=== PATIENT | male | born 1975 | race Caucasian/White ===

== ENCOUNTER 2025-04-29 20:19 | Emergency (ER) | payer SELFPAY ==
[2025-04-29 20:21] VITALS: BP 169/120
[2025-04-29 20:48] LABS: % Basophils 0.8 % (0-2); % Eosinophils 3.5 % (0-6); % Immature Granulocytes 0.1 % (0-0.5); % Lymphocytes 28.1 % (20.5-51.1); % Monocytes 6.4 % (1.7-9.3); % Neutrophils 61.1 % (42.2-75.2); Absolute Basophils 0.1 10^3/uL (0-0.2); Absolute Eosinophils 0.3 10^3/uL (0-0.7); Absolute Lymphocytes 2.2 10^3/uL (1.2-3.4); Absolute Monocytes 0.5 10^3/uL (0.1-0.6); Absolute Neutrophils 4.9 10^3/uL (1.4-6.5); Hematocrit 47.5 % (39.0-52.0); Hemoglobin 16.5 g/dL (13.0-18.0); Mean Corp Hgb Conc. 34.7 g/dL (33.0-37.0); Mean Corpuscular Hgb 30.8 pg (27.0-31.0); Mean Corpuscular Volume 88.8 fL (80.0-94.0); Mean Platelet Volume 9.5 fL (7.4-10.4); Nucleated Red Blood Cells % 0 % (-); Platelet Count 192 10^3/uL (130-400); Red Blood Cell Count 5.35 10^6/uL (4.70-6.10); Red Cell Dist. Width 13.2 % (11.5-14.5); White Blood Cell Count 7.9 10^3/uL (4.8-10.8)
[2025-04-29 20:57] LABS: Amphetamines Negative (Negative); Barbiturates Negative (Negative); Benzodiazepines Negative (Negative); Buprenorphine Negative (Negative); Cocaine Negative (Negative); Marijuana Negative (Negative); Methadone Negative (Negative); Methamphetamines Negative (Negative); Opiates Negative (Negative); Phencyclidine Negative (Negative); Tricyclic Antidepressants Negative (Negative)
[2025-04-29 21:08] VITALS: BMI 44.4
[2025-04-29 21:09] LABS: ALT (SGPT) 27 U/L (0-50); AST (SGOT) 31 U/L (17-59); Albumin 4.8 g/dl (3.5-5.0); Alkaline Phosphatase 89 U/L (38-126); Blood Urea Nitrogen 28 mg/dl (9-20); Calcium 9.7 mg/dl (8.4-10.2); Carbon Dioxide 22 mmol/L (22-30); Chloride 108 mmol/L (98-107); Estimated Creatinine Clearance 104 ml/min; Glucose 89 mg/dl (70-99); Potassium 4.3 mmol/L (3.5-5.1); Sodium 139 mmol/L (135-145); Total Bilirubin 0.5 mg/dl (0.2-1.3); Total Protein 7.8 g/dl (6.3-8.2); eGFR > 60.00
[2025-04-29 21:12] VITALS: BP 166/111
[2025-04-29 22:00] VITALS: BP 166/99
[2025-04-29 22:09] LABS: Free T4 0.87 ng/dl (0.78-2.19)
[2025-04-29 22:42] LABS: Troponin I < 0.012 ng/ml
--- NOTE | 2025-04-29 22:44 | ED.GENMED ---
History of Present Illness
General
Chief Complaint: Heart Rate Problem
Time Seen by Provider: 04/29/25 21:13
History of Present Illness
History of Present Illness:
50-year-old male with history of hypothyroidism and hypertension presenting to the emergency department for abnormal sensation in his chest. Patient reports around 8 PM he felt like his heart rate was slowing down. Symptoms lasted for few minutes.
Reports similar symptoms yesterday as well, however resolved on their own. Reports that he has had issues with his heart in the past, however does mention that he has had issues with substance abuse, speed. Last usage was in February. Notes that
cardiac issues in the past have been tied to drug abuse. Denies any chest pain or difficulty breathing. Denies any known history of arrhythmias. Does note that he has been struggling with his thyroid levels, reports compliance with his
medications. Does note that he has been on ziprasidone for psychosis from the [employer]. He is not sure whether or not this is causing a reaction, however has tolerated this medication since February. Denies abdominal pain or GI symptoms. Denies
additional acute medical complaints.
Past History
Past History
ED Past Medical History: None
ED Past Surgical History: None
Phy Exam
Physical Exam
Physical Exam:
General: Well-appearing, no clinical signs of dehydration, nontoxic and in no acute distress
HEENT: protecting airway
Neck: appears supple
CV: Normal heart rate, regular rhythm
Resp: No accessory muscle use, no increased work of breathing, lungs clear to auscultation bilaterally
Abd: Soft and non-distended, no tenderness to palpation
Extremities: No deformities, no swelling
Neuro: alert, no focal neurologic deficit
: deferred
Rectal: deferred
Psych: Normal affect
Skin: Intact
Course
Orders/Labs/Results
Orders:
Orders
04/29/25 20:21
ECG [Electrocardiogram (*1)] Urgent
Reason for Study: Palpitations
EKG- Treatment ONCE
04/29/25 20:26
Electrocardiogram (*1) Urgent
Reason for Study: Palpitations
04/29/25 20:38
Complete Blood Count/With Diff Urgent
Comprehensive Metabolic Panel Urgent
Free T4 Urgent
TSH Reflex To Free T4 Urgent
04/29/25 20:41
Urine Drug Abuse Screen Urgent
Date Specimen was Collected: 04/29/25
Time Specimen was Collected: 20:28
04/29/25 22:10
Troponin I Urgent
Abnormal Lab Results
04/29/25
20:38
Chloride 108 H mmol/L
(98-107)
BUN 28 H mg/dl
(9-20)
TSH (Reflex) 16.80 H uIU/ml
(0.47-4.68)
04/29/25 20:38
04/29/25 20:38
Vital Signs
Initial and Last Documented VS:
Initial Vital Signs
Temp Pulse Resp BP Pulse Ox
98.1 F 98 18 169/120 99
04/29/25 20:21 04/29/25 20:21 04/29/25 20:21 04/29/25 20:21 04/29/25 20:21
Last Documented Vital Signs
Temp Pulse Resp BP Pulse Ox
99.2 F 82 20 166/111 98
04/29/25 21:12 04/29/25 21:12 04/29/25 21:12 04/29/25 21:12 04/29/25 21:12
MDM/Problems Addressed
MDM/Problems Addressed:
50-year-old male with history of hypertension, hypothyroidism, anxiety presenting for concerns of palpitations. Vital signs on arrival are significant for high blood pressure.
On physical exam patient resting comfortably, no acute distress or discomfort. EKG obtained on patient's arrival, no arrhythmia, no ischemia. Unclear etiology to patient's sensation of a 'low heart rate'. No present bradycardia. Plan for
screening laboratory analysis including electrolyte panel, TSH given history, continued cardiac monitoring.
22:50 - Labs unremarkable with no electrolyte derangements. TSH is elevated at 16, however normal T4 and patient notes that this is an improvement from prior. Patient reports he is currently asymptomatic. Undetectable troponin. Ultimately feel
stable for discharge, however with outpatient cardiology follow-up for potential Holter monitoring. Return precautions discussed and patient verbalized understanding.
*EKG
Interpreted by ED Provider?: Yes
EKG Intrepretation Date: 04/29/25
EKG Intrepretation Time: 22:48
Interpretation: normal
Heart Rate: 81
Rate: normal
Rhythm: sinus
[place]: normal axis
Interval: normal interval
QRS Pattern: normal QRS
Ischemia: no ischemia
*Critical Care Note
Total Time (30-74mins, 75-104mins- exclusive of procedures): Not Applicable
ED Attending Note
-
Portions of this chart may have been created with voice recognition software.� Occasional wrong word or��sound alike� substitutions may have occurred due to the inherent limitations of voice recognition software.
Discharge Plan
Departure
Prescriptions:
No Action
amoxicillin-pot clavulanate 1 TABLET tablet
1 tab PO Q12 Qty: 13 0RF
Interventions
Interventions:
*Risk Screen - Suicide Last Done: 04/29/25 20:21
*General Assessment Last Done: 04/29/25 20:21
*Neglect/Abuse Screening Last Done: 04/29/25 20:21
*ED- Fall Risk Assessment Last Done: 04/29/25 21:10
*ED COVID-19 Vaccine History Last Done: 04/29/25 21:10
ED- Cardiac Assessment Last Done: 04/29/25 21:14
ED- Pulmonary Assessment Last Done: 04/29/25 21:14
Discharge Date and Time
Print Language: MALDIVIAN
[2025-04-29 22:46] VITALS: BP 152/91
== END 2025-04-29 23:13 | disposition home or self-care (01) ==
LOC: EMR 20:19
PROVIDERS: Emergency Medicine; EMERGENCY PHYSICIAN Student in an Organized Health Care Education/Training Program
DX: R00.2 Palpitations (principal); E03.9 Hypothyroidism, unspecified; I10 Essential (primary) hypertension
CPT/HCPCS: 99284; 80053; 80306; 84439; 84443; 84484; 85025; 93005